=== PATIENT | female | born 1990 | race Caucasian/White ===

== ENCOUNTER 2016-08-31 20:18 | Emergency (ER) | payer OTHER ==
[2016-08-31 20:36] VITALS: BP 133/86; PULSE 90; TEMP 98.8; BMI 33.3
[2016-08-31] MEDS ORDERED: SODIUM CHLORIDE 1,000 ML IV STA (21:49)
[2016-08-31] MEDS ORDERED: ACETAMINOPHEN 325 MG TABLET (FP) PO ONE (21:49)
[2016-08-31 21:56] LABS: URINE APPEARANCE CLOUDY; URINE BILIRUBIN NEGATIVE (NEGATIVE); URINE COLOR AMBER; URINE GLUCOSE (UA) NEGATIVE (NEGATIVE); URINE KETONE NEGATIVE (NEGATIVE); URINE NITRITE NEGATIVE (NEGATIVE); URINE UROBILINOGEN 2.0 E.U/dl E.U./dl (0.2-1.0)
[2016-08-31] MEDS ORDERED: ACETAMINOPHEN 325 MG TABLET (FP) ONE (22:10)
[2016-08-31 22:13] LABS: URINE BLOOD 3+ (NEGATIVE); URINE LEUK ESTERASE 2+ (NEGATIVE); URINE PROTEIN 2+ (NEGATIVE)
[2016-08-31 22:16] LABS: URINE MUCUS MANY; URINE RBC 2308 /hpf (0-3); URINE WBC 1056 /hpf (3-5)
[2016-08-31 22:21] LABS: BASOPHIL 0.4 % (0-2.0); EOSINOPHIL 0.7 % (0-4.5); MCH 27.6 pg (25.7-33.7); MCHC 31.7 g/dl (32.0-36.0); MEAN CELL VOLUME 86.8 fl (80-96); MEAN PLT VOLUME 7.2 fl (7.5-11.1); NEUTROPHILS 83.1 % (42.8-82.8); PLATELET COUNT 410 K/MM3 (134-434); RDW 14.3 % (11.6-15.6); WHITE BLOOD COUNT 16.6 K/mm3 (4.0-10.0)
[2016-08-31 22:42] LABS: ALBUMIN 2.8 g/dl (3.4-5.0); ALK PHOS 130 U/L (45-117); ANION GAP 13 (8-16); BILIRUBIN,TOTAL 0.3 mg/dL (0.2-1.0); CALCIUM 8.3 mg/dL (8.5-10.1); CO2 21 mmol/L (21-32); CREATININE 0.7 mg/dL (0.55-1.02); GLUCOSE,RANDOM 80 mg/dL (74-106); SGOT/AST 22 U/L (15-37); SGPT/ALT 32 U/L (12-78); TOT PROT 6.5 g/dl (6.4-8.2)
--- NOTE | 2016-08-31 23:09 | PDOC ---
History of Present Illness - General History Source: Patient Exam Limitations: No Limitations - History of Present Illness Initial Comments: 08/31/16 23:39 The patient is a 26 year old female (), with no significant past medical history, who presents to the emergency department with fevers and body aches since this evening. The patient recently gave 6 days ago (08/25/2016; spontaneous vaginal ; no complications) at [facility]. Since giving , the patient has been experiencing intermittent vaginal spotting, which is consistent with what she expected after a vaginal . However, this morning, the patient began to experience blood clots from the vagina and returned to [facility] to be evaluated. She was seen in the ED there and was discharged home with Misoprostol. The patient reports taking the Misoprostol at 5PM this evening. Shortly after, she began experiencing a fever of 101 and body aches. The patient reports taking Motrin for the fever at 7PM this evening. The patient additionally admits to bilateral leg cramping. The patient denies SOB, chest pain, nausea, vomiting, diarrhea or dysuria. Family is with her in the ED. Allergies: None reported. Past Surgical History: None reported. Social History: Non smoker. Denies alcohol or drug use. PCP: Dr. Ta <Amrita Doarntes - Last Filed: 09/01/16 00:24> - General History Source: Patient Exam Limitations: No Limitations <Harry Bearden - Last Filed: 09/01/16 00:59> - General Chief Complaint: Vaginal Bleeding Stated Complaint: FEVER/CHILLS/SWOLLEN LEGS/ABD PAIN Time Seen by Provider: 08/31/16 21:31 Past History <Amrita Dorantes - Last Filed: 09/01/16 00:24> - Past Medical History Suicide Attempt (Hx): No - Reproductive History (#): 0 - Immunization History Immunization Up to Date: Yes - Psycho/Social/Smoking Cessation Hx Anxiety: No Suicidal Ideation: No Smoking Status: No Smoking History: Never smoked Have you smoked in the past 12 months: No Number of Cigarettes Smoked Daily: 0 Information on smoking cessation initiated: No Hx Alcohol Use: No Drug/Substance Use Hx: No Substance Use Type: None <Harry Bearden - Last Filed: 09/01/16 00:59> - Past Medical History Allergies/Adverse Reactions: Allergies Allergy/AdvReac Type Severity Reaction Status Date / Time No Known Allergies Allergy Verified 08/31/16 20:26 Home Medications: Ambulatory Orders Misoprostol [Cytotec -] 200 mcg PO Q6H 08/31/16 Review of Systems - Review of Systems Able to Perform ROS?: Yes Comments:: 08/31/16 23:40 GENERAL/CONSTITUTIONAL: +Fevers, body aches. No weakness. HEAD, EYES, EARS, NOSE AND THROAT: No change in vision. No ear pain or discharge. No sore throat. CARDIOVASCULAR: No chest pain or shortness of breath. RESPIRATORY: No cough, wheezing, or hemoptysis. GASTROINTESTINAL: No nausea, vomiting, diarrhea or constipation. GENITOURINARY: No dysuria, frequency, or change in urination. MUSCULOSKELETAL: +Bilateral leg cramping. No joint swelling or pain. No neck or back pain. SKIN: No rash. NEUROLOGIC: No headache, vertigo, loss of consciousness, or change in strength/ sensation. ENDOCRINE: No increased thirst. No abnormal weight change. HEMATOLOGIC/LYMPHATIC: No anemia, easy bleeding, or history of blood clots. ALLERGIC/IMMUNOLOGIC: No hives or skin allergy. <Amrita Dorantes - Last Filed: 09/01/16 00:24> *Physical Exam - Vital Signs Last Vital Signs Temp Pulse Resp BP Pulse Ox 98.8 F 90 14 133/86 96 08/31/16 20:28 08/31/16 20:28 08/31/16 20:28 08/31/16 20:28 08/31/16 20:28 - Physical Exam Comments: 08/31/16 23:40 GENERAL: Awake, alert, and fully oriented, in no acute distress. HEAD: No signs of trauma. EYES: PERRLA, EOMI, sclera anicteric, conjunctiva clear. ENT: Auricles normal inspection, hearing grossly normal, nares patent, oropharynx clear without exudates. Moist mucosa. NECK: Normal ROM, supple, no lymphadenopathy, JVD, or masses. LUNGS: Breath sounds equal, clear to auscultation bilaterally. No wheezes, and no crackles. HEART: Regular rate and rhythm, normal S1 and S2, no murmurs, rubs or gallops. ABDOMEN: Epigastric tenderness on palpation. Soft, normoactive bowel sounds. No guarding, no rebound. No masses. EXTREMITIES: Bilateral calf tenderness on palpation. Normal range of motion, no edema. No clubbing or cyanosis. No cords or erythema. NEUROLOGICAL: Cranial nerves II through XII grossly intact. Normal speech, normal gait. SKIN: Warm, dry, normal turgor, no rashes or lesions noted. <Amrita Dorantes - Last Filed: 09/01/16 00:24> - Vital Signs Last Vital Signs Temp Pulse Resp BP Pulse Ox 98.8 F 90 14 133/86 96 08/31/16 20:28 08/31/16 20:28 08/31/16 20:28 08/31/16 20:28 08/31/16 20:28 <Harry Bearden - Last Filed: 09/01/16 00:59> ED Treatment Course - LABORATORY CBC & Chemistry Diagram: 08/31/16 21:50 08/31/16 21:50 - ADDITIONAL ORDERS Additional order review: Laboratory Results 08/31/16 08/31/16 21:50 21:42 Sodium 138 Potassium 3.8 Chloride 104 Carbon Dioxide 21 Anion Gap 13 BUN 11 Creatinine 0.7 D Creat Clearance w eGFR > 60 Random Glucose 80 Calcium 8.3 L Total Bilirubin 0.3 D AST 22 D ALT 32 D Alkaline Phosphatase 130 H D Total Protein 6.5 Albumin 2.8 L D Urine Color Ilana Urine Appearance Cloudy Urine pH 6.0 Ur Specific [place] 1.031 Urine Protein 2+ H Urine Glucose (UA) Negative Urine Ketones Negative Urine Blood 3+ H Urine Nitrite Negative Urine Bilirubin Negative Urine Urobilinogen 2.0 e.u/dl H Ur Leukocyte Esterase 2+ H D Urine RBC 2308 Urine WBC 1056 Ur Epithelial Cells Moderate Urine Mucus Many 08/31/16 21:50 RBC 4.10 MCV 86.8 MCHC 31.7 L RDW 14.3 MPV 7.2 L D Neutrophils % 83.1 H Lymphocytes % 10.2 D Monocytes % 5.6 Eosinophils % 0.7 Basophils % 0.4 - Medications Given in the ED: ED Medications Discontinued Medications Generic Name Dose Route Start Last Admin Trade Name Freq PRN Reason Stop Dose Admin Acetaminophen 650 mg 08/31/16 21:49 08/31/16 22:12 Tylenol - PO 08/31/16 21:50 650 mg ONCE ONE Administration Sodium Chloride 1,000 mls @ 1,000 mls/hr 08/31/16 21:49 08/31/16 22:10 Normal Saline - IV 08/31/16 22:48 1,000 mls/hr ASDIR STA Administration <JaynaSudeepAmrita - Last Filed: 09/01/16 00:24> - LABORATORY CBC & Chemistry Diagram: 08/31/16 21:50 08/31/16 21:50 - ADDITIONAL ORDERS Additional order review: Laboratory Results 08/31/16 08/31/16 21:50 21:42 Sodium 138 Potassium 3.8 Chloride 104 Carbon Dioxide 21 Anion Gap 13 BUN 11 Creatinine 0.7 D Creat Clearance w eGFR > 60 Random Glucose 80 Calcium 8.3 L Total Bilirubin 0.3 D AST 22 D ALT 32 D Alkaline Phosphatase 130 H D Total Protein 6.5 Albumin 2.8 L D Urine Color Ilana Urine Appearance Cloudy Urine pH 6.0 Ur Specific [place] 1.031 Urine Protein 2+ H Urine Glucose (UA) Negative Urine Ketones Negative Urine Blood 3+ H Urine Nitrite Negative Urine Bilirubin Negative Urine Urobilinogen 2.0 e.u/dl H Ur Leukocyte Esterase 2+ H D Urine RBC 2308 Urine WBC 1056 Ur Epithelial Cells Moderate Urine Mucus Many 08/31/16 21:50 RBC 4.10 MCV 86.8 MCHC 31.7 L RDW 14.3 MPV 7.2 L D Neutrophils % 83.1 H Lymphocytes % 10.2 D Monocytes % 5.6 Eosinophils % 0.7 Basophils % 0.4 - RADIOLOGY Radiology Studies Ordered: Category Date Time Status DUPLEX VASCUL US-2LEGS [US] Stat Ultrasound 08/31/16 21:49 Ordered PELVIC / BLADDER US [US] Stat Ultrasound 08/31/16 21:49 Ordered - Medications Given in the ED: ED Medications Discontinued Medications Generic Name Dose Route Start Last Admin Trade Name Freq PRN Reason Stop Dose Admin Acetaminophen 650 mg 08/31/16 21:49 08/31/16 22:12 Tylenol - PO 08/31/16 21:50 650 mg ONCE ONE Administration Sodium Chloride 1,000 mls @ 1,000 mls/hr 08/31/16 21:49 08/31/16 22:10 Normal Saline - IV 08/31/16 22:48 1,000 mls/hr ASDIR STA Administration <Harry Bearden - Last Filed: 09/01/16 00:59> Medical Decision Making - Medical Decision Making 09/01/16 00:24 EXAM: PELVIC/BLADDER US Reviewed By: Dr. Ricco Lee IMPRESSION: Prominent uterus. Slightly heterogenous endometrium at the upper limits of normal. These findings are consistent with recent . Normal appearance of both ovaries with normal vascular flow seen bilaterally. EXAM: DUPLEX VASCULAR US-2 LEGS Reviewed By: Dr. Ricco Lee IMPRESSION: Bilateral lower extremity venous duplex negative for deep venous thrombosis. <Amrita Dorantes - Last Filed: 09/01/16 00:24> - Medical Decision Making 08/31/16 23:05 A portion of this note was documented by scribe services under my direction. I have reviewed the details of the note, within reason, and agree with the documentation with the following case summary and management plan written by me. Patient treated in the ED. Nursing notes are reviewed and incorporated into the medical decision-making. Vital signs reviewed. Peripheral IV access obtained by the nurse, laboratory studies are drawn and sent, reviewed and interpreted by myself. Vital Signs Temp Pulse Resp BP Pulse Ox 98.8 F 90 14 133/86 96 08/31/16 20:28 08/31/16 20:28 08/31/16 20:28 08/31/16 20:28 08/31/16 20:28 26-year-old female with no past medical history presents to the emergency department for fevers 101 today. The patient recently delivered normal spontaneous vaginal delivery at [facility] on August 25. Patient reports having no complications. Since then, she's been having vaginal spotting on a daily basis which was consistent to what she was told to. This morning, the patient had blood clots from the vagina and went to [facility]. She was seen by an EM physician and asic engineer physician. She was seen and given misoprostol to assist with passage of blood clots. Upon returning home at 2:00 PM, the patient hadn't taken her medications. However, in the evening, the patient started feel body aches, fever to 101. Denies nausea, vomiting, diarrhea. She denies dysuria. Patient also reports bilateral leg cramping. I suspect that the patient may have caught a viral syndrome while awaiting her visit in the emergency department. Urinary tract infection is is within the differential. At this time, there is no suprapubic pain or unusual smelly vaginal discharge. At this time, I do not suspect a uterine infection at this time. We'll obtain duplex to rule out DVTs. We'll draw labs and symptom control and reassess. Patient did report that her white blood cell count was 27 upon delivery. She reports that has been down trending down to 16, which has been as well today. 09/01/16 00:40 Ultrasound reviewed. No DVTs. Ultrasound shows findings consistent with recent findings. Ovaries are unremarkable. 09/01/16 00:55 CBC, BMP 08/31/16 21:50 08/31/16 21:50 CMP Sodium 138 mmol/L (136-145) 08/31/16 21:50 Potassium 3.8 mmol/L (3.5-5.1) 08/31/16 21:50 Chloride 104 mmol/L (98-107) 08/31/16 21:50 Carbon Dioxide 21 mmol/L (21-32) 08/31/16 21:50 Anion Gap 13 (8-16) 08/31/16 21:50 BUN 11 mg/dL (7-18) 08/31/16 21:50 Creatinine 0.7 mg/dL (0.55-1.02) D 08/31/16 21:50 Creat Clearance w eGFR > 60 (>60) 08/31/16 21:50 Random Glucose 80 mg/dL (74-106) 08/31/16 21:50 Calcium 8.3 mg/dL (8.5-10.1) L 08/31/16 21:50 Total Bilirubin 0.3 mg/dL (0.2-1.0) D 08/31/16 21:50 AST 22 U/L (15-37) D 08/31/16 21:50 ALT 32 U/L (12-78) D 08/31/16 21:50 Alkaline Phosphatase 130 U/L (45-117) H D 08/31/16 21:50 Total Protein 6.5 g/dl (6.4-8.2) 08/31/16 21:50 Albumin 2.8 g/dl (3.4-5.0) L D 08/31/16 21:50 Urine Test Results Urine Color Ilana 08/31/16 21:42 Urine Appearance Cloudy 08/31/16 21:42 Urine pH 6.0 (5.0-8.0) 08/31/16 21:42 Ur Specific [place] 1.031 (1.001-1.035) 08/31/16 21:42 Urine Protein 2+ (NEGATIVE) H 08/31/16 21:42 Urine Glucose (UA) Negative (NEGATIVE) 08/31/16 21:42 Urine Ketones Negative (NEGATIVE) 08/31/16 21:42 Urine Blood 3+ (NEGATIVE) H 08/31/16 21:42 Urine Nitrite Negative (NEGATIVE) 08/31/16 21:42 Urine Bilirubin Negative (NEGATIVE) 08/31/16 21:42 Ur Leukocyte Esterase 2+ (NEGATIVE) H D 08/31/16 21:42 Urine RBC 2308 /hpf (0-3) 08/31/16 21:42 Urine WBC 1056 /hpf (3-5) 08/31/16 21:42 Ur Epithelial Cells Moderate /hpf (FEW) 08/31/16 21:42 Urine Mucus Many 08/31/16 21:42 Labs reviewed. WBC stable. UA reviewed. The patient reports that she had blood clots fall into the urine sample. She states that she contaminated it. She denies dysuria, urinary frequency or any signs of UTI and she prefers not to take any antibiotics for this. I agree that this is likely contaminated. The patient here in the ED started to develop diarrhea. Again, I suspect that the patient is likely having a viral syndrome, with likely exposure from the [facility] ED. Supportive care and follow up with her doctors. I discussed the physical exam findings, ancillary test results and final diagnoses with the patient. I answered all of the patient's questions. The patient was satisfied with the care received and felt comfortable with the discharge plan and treatment plan. The patient will call their primary care physician within 24 hours to arrange follow-up and will return to the Emergency Department with any new, persistant or worsening symptoms. <Harry Bearden - Last Filed: 09/01/16 00:59> *DC/Admit/Observation/Transfer - Attestations Scribe Attestion: 08/31/16 23:22 Documentation prepared by Amrita Dorantes, acting as medical oncologist for Harry Bearden MD. <JaynaAmrita - Last Filed: 09/01/16 00:24> - Discharge Dispostion Admit: No <Harry Bearden - Last Filed: 09/01/16 00:59> Diagnosis at time of Disposition: Viral syndrome - Discharge Dispostion Disposition: HOME Condition at time of disposition: Stable - Referrals Referrals: Erika Ta [Primary Care Provider] - - Patient Instructions Printed Discharge Instructions: DI for Viral Syndrome Additional Instructions: You have been given a copy of your results. Please follow up with your primary care physician. Drink plenty of fluids and rest. You may take 650 mg tylenol every 4 hours and/or 600 mg ibuprofen every 6 hours as needed for pain. It may take several days before you get better.
== END 2016-09-01 01:02 | disposition home or self-care (01) ==
LOC: JER 20:18
PROC: 3E0337Z Introduction of Electrolytic and Water Balance Substance into Peripheral Vein, Percutaneous Approach (ICD-10-PCS; principal; 2016-08-31)
DX: O98.53 Other viral diseases complicating the puerperium (principal); B33.8 Other specified viral diseases
CPT/HCPCS: 36415; 76856-TC; 80053; 81003; 81015; 85025; 87804; 93970-TC; 96360; 99282-25

== ENCOUNTER 2019-07-29 08:11 | Emergency (ER) | payer OTHER ==
[2019-07-29 08:19] VITALS: BP 118/78; PULSE 89; TEMP 98; BMI 26.5
--- NOTE | 2019-07-29 08:40 | PDOC ---
History of Present Illness - General Chief Complaint: Injury Stated Complaint: WORK RELATED INJURY Time Seen by Provider: 07/29/19 08:31 History Source: Patient - History of Present Illness Occurred: reports: this morning Pain Location: reports: upper extremity Past History - Past Medical History Allergies/Adverse Reactions: Allergies Allergy/AdvReac Type Severity Reaction Status Date / Time No Known Allergies Allergy Verified 07/29/19 08:15 Home Medications: Ambulatory Orders Cephalexin [Keflex] 500 mg PO BID 5 Days #10 capsule 04/08/18 Ondansetron [Zofran *Odt*] 8 mg SL BID PRN 5 Days #10 od.tablet 04/08/18 COPD: No - Reproductive History (#): 0 - Immunization History Immunization Up to Date: Yes - Psycho Social/Smoking Cessation Hx Smoking Status: No Smoking History: Never smoked Have you smoked in the past 12 months: No Number of Cigarettes Smoked Daily: 0 Information on smoking cessation initiated: No Hx Alcohol Use: No Drug/Substance Use Hx: No Substance Use Type: None Review of Systems - Review of Systems Integumentary: Yes: Other (wound) *Physical Exam - Vital Signs Last Vital Signs Temp Pulse Resp BP Pulse Ox 98 F 89 19 118/78 100 07/29/19 08:13 07/29/19 08:13 07/29/19 08:13 07/29/19 08:13 07/29/19 08:13 - Physical Exam General Appearance: Yes: Appropriately Dressed. No: Apparent Distress HEENT: positive: Normal Voice Neck: positive: Supple Respiratory/Chest: negative: Respiratory Distress Integumentary: positive: Dry, Warm, Other (no obvious punture wound, no fb sensation on palpation) Neurologic: positive: Fully Oriented, Alert, Normal Mood/Affect Medical Decision Making - Medical Decision Making 07/29/19 08:40 29-year-old female, no significant history, tetanus up-to-date, works as a nurse in the OR at [employer] and here with puncture wound. Patient states that while fixing a cable in the OR this am, a piece of glass attached to a cable struck her R index. Has since cleaned site. No pain. No fb sensation. Patient well- appearing and stable with no obvious wound on exam. No further intervention needed in ER. To return as needed Discharge - Discharge Information Problems reviewed: Yes Clinical Impression/Diagnosis: Puncture wound Condition: Good Disposition: HOME - Follow up/Referral Referrals: Erika Ta [Primary Care Provider] - - Patient Discharge Instructions Additional Instructions: Your injury does not constitute an exposure and there is no further intervention needed in ER. - Post Discharge Activity
== END 2019-07-29 08:43 | disposition home or self-care (01) ==
LOC: JERFT 08:11 → JER 08:11 → JERFT 08:43
DX: S61.230A Puncture wound without foreign body of right index finger without damage to nail, initial encounter (principal); W22.8XXA Striking against or struck by other objects, initial encounter; Y93.89 Activity, other specified; Y92.234 Operating room of hospital as the place of occurrence of the external cause; Y99.0 Civilian activity done for income or pay
CPT/HCPCS: 99281-25